=== PATIENT | male | born 1990 | race Caucasian/White ===

== ENCOUNTER 2017-07-05 17:49 | Emergency (ER) | payer SELFPAY ==
[~2017-07-05] VITALS: Ht 172.7 cm; Wt 79.6 kg
[2017-07-05 22:17] VITALS: BP 120/68
== END 2017-07-05 22:17 | disposition home or self-care (01) ==
LOC: ED 17:49
DX: R20.2 Paresthesia of skin (principal); M25.512 Pain in left shoulder
CPT/HCPCS: 82962